=== PATIENT | female | born 1925 | race Caucasian/White ===

== ENCOUNTER 2016-12-04 06:20 | Day surgery (SDC) | payer MEDICARE, OTHER ==
[~2016-12-04] VITALS: Ht 160 cm; Wt 57.1 kg
[2016-12-04] VITALS (9 sets, daily range): BP systolic 141–175; BP diastolic 36–46; PULSE 53–70; RESP 15–22; O2SAT 91–98
[~2016-12-04 06:20] MED LIST: ALEN70TA51 PO; CHOL100045 PO; Dexamethasone 4 mg/mL Inj IV ONE; Dexamethasone Inj 20 MG in 0.9% Sodium Chloride-Pha MIX 50 ML IV ONE; FELO10TA3 PO; HYDR12.55 PO; LOSA50TA37 PO; Lactated Ringer's 1,000 ML IV ONE; METO50TA3 PO
[2016-12-04] MEDS ORDERED: Propofol 10,000 mCg/mL 20 mL Inj ONE (06:21)
[2016-12-04] MEDS ORDERED: EPHEDrine/NS 5 mg/mL 5 mL Syringe ONE (06:21)
[2016-12-04] MEDS ORDERED: Ondansetron 2 mg/mL 2 mL Inj ONE (06:21)
[2016-12-04] MEDS ORDERED: fentaNYL-PF 50 mCg/mL 2 mL Inj ONE (06:21)
[2016-12-04] MEDS ORDERED: Glycopyrrolate 0.2 MG/ML 1mL Inj ONE (06:21)
[2016-12-04] MEDS ORDERED: Neostigmine 1 mg/mL 10 mL Inj ONE (06:21)
--- NOTE | 2016-12-04 06:52 | PCM.HPANE ---
Patient Data Surgeon Admitting Provider: Attending Provider:Yunior Leal MD Primary Care Physician:Leon Soares MD Other Provider:[facility] Reason for Visit Primary Hyperparathyroidism Ht/WT & BMI Height (Feet): 5 Height (Inches): 3.25 Weight (Kilograms): 56.699 Body Mass Index 21.00 Allergies Coded Allergies: No Known Allergies (Verified , 12/01/16) Past Anesthesia History Anesthesia History: Denies:: Anesthesia Reactions, Malignant Hyperthermia Diabetes History Hx Diabetes?: No MRSA MRSA: No Medications Hypertension Medication: Yes (FELODIPINE) Home Meds Incl Beta Joel: Yes Date Beta Joel Taken: Dec 04, 2016 Time Beta Joel Taken: 529 Reported Medications Cholecalciferol (Vitamin D3) (Vitamin D)1,000 Unit Capsule2,000 Unit PO DAILY # 1 BOTTLE Ref 0 12/01/16 Metoprolol Tartrate 50 Mg [id number] Mg PO DAILY 30 Days Ref 0 12/01/16 Losartan Potassium 50 Mg [id number] Mg PO DAILY 12/01/16 Hydrochlorothiazide 12.5 Mg Fsmnnq26.5 Mg PO DAILY 30 Days Ref 0 12/01/16 Felodipine ER 10 Mg Tab.er.24h10 Mg PO DAILY Ref 0 12/01/16 Alendronate (Binosto)70 Mg Tablet.eff70 Mg PO WEEKLY 12/01/16 Discontinued Reported Medications Metoprolol Succinate ER 50 Mg Tab.er.24h50 Mg PO DAILY Ref 0 12/07/15 Felodipine-Expunged Drug, Do Not Renew! (Plendil-Expunged Drug, Do Not Renew!)5 Mg Tablet5 Mg PO DAILY 10/09/12 Losartan-Expunged Drug, Do Not Renew! 50 Mg Zibbxc28 Mg PO BID 06/23/11 [vitamin D] No Conflict Check take as perviously directed 06/23/11 History History of ENT Problems?: Yes HEENT History: Positive for:: Cataracts Sinus Problem ("I have alot of mucus") Denies:: Dysphagia Denture Type: None Teeth Condition: Within Normal Limits Other HEENT Pertinent History: S/P RPR LT MAXILLARY SINUS,T&A Hx of Heart Problems?: Yes Cardiovascular History: Positive for:: Chest Pain (09/2012 [facility]PS WNL) Hypertension Denies:: Cardiac Surgery Congestive Heart Failure Edema Heart Murmur Irregular Heartbeat Pacemaker Thrombophlebitis Other Cardiac History: HX CHRONIC ANEMIA Hx of Respiratory Problem?: No Respiratory History: Denies:: Tuberculosis Use of C-PAP Machine Hx Neurologic Problems?: No Hx of GI Problems?: Yes Other GI Pertinent History: S/P APPY,COLON RESECTION FOR CA Hx of Problems?: No Genitourinary History: Denies:: HX of Hemodialysis Kidney Stones Urinary Tract Infection HX of Peritoneal Dialysis: No Female Hx: Denies:: Currently (S/P C/S X2) Endometriosis Pelvic Inflammatory Problems with Breasts? Skin History: Denies:: History Skin Disorders? Pressure Ulcers Hx Musculoskeletal Problems?: No Musculoskeletal History: Positive for:: Back Injury (CHRONIC) Musculoskeletal Trauma (S/P ORIF FEET/LEGS,RT HUMERUS (FALL DOWN STAIRS)) Denies:: Joint Replacement Osteoarthritis (OSTEOPOROSIS) Hx of Psycho/Social Problems?: No Hx Surgeries?: Yes (ORIF FOOT/LEGS/RT HUMERUS,RPR LR MAX. SINUS,APPY,C/SX2,T&A, COLON RESECTION) Hx Any Other Health Problems?: Yes Other History: Positive for:: Cancer (Colon cancer) Denies:: Endocrine Disease Hospitalization (GASTROENTERITIS/SEPSIS) Thyroid Disease (PRIMARY HYPERPARATHYROIDISM=CURRENT PROBLEM) History Blood Transfusions: Positive for:: Accept Blood Products? Blood Transfusions Denies:: Blood Transfuse Reaction Hx Diabetes: No Hx Alcohol Use: NoHx Substance Use: NoHave You Smoked inLast 12 mo: No Stop/Bang S-Snoring: Do You Snore Loudly: No T-Tired: feel tired, fatigued: No O-Obsered: Observed not breath: No P-Blood Pressure: treated: Yes A- Age over 50: Yes N- Neck Large Circumference: No G- Gender Male: No Risk Assessment Category Category 1A: Patient has history of documented sleep apnea, and HAS NOT received any narcotic, sedative or anesthesia administration during this stay. Category 1B: Patient has history of documented sleep apnea, and HAS received any narcotic , sedative or anesthesia administration during this stay Category 2: Patient has SUSPECTED Obstructive Sleep Apnea, and HAS received any narcotic , sedative or anesthesia administration during this stay. Category 3: Patient has SUSPECTED Obstructive Sleep Apnea and HAS NOT received narcotic, sedative or anesthesia administration during this stay. Category 4: Outpatient in Procedural Areas with known sleep apnea or who screen positive for High Risk via the STOP/BANG questionnaire. Exam Exam General Appearance: Alert, Oriented X3, Cooperative, Mild Distress HEENT/AIRWAY: MP 2, Neck Movement (from), Mouth Opening (wnl) Heart: Exam Unremarkable Meds/Labs/Diagnostics Admission Meds Current Medications Lactated Ringer's (Lr) 1,000 ml @ 120 mls/hr Q8H20M ONCE IV Last administered on 12/04/16t 06:39; Start 12/04/16 at 05:00; Stop 12/04/16 at 13:19 Plan Impression Patient chart reviewed, patient interviewed and anesthestic plan with risks, benefits, and alternatives discussed, and informed consent obtained. ASA Physical Status: ASA2 Mod Systemic Disease Anesthetic Plan: GA Bene/Risks/Altern/Consents: Yes HP Complete Prior to Induction: Yes Cornelio Lucia MD Dec 04, 2016 06:52
[2016-12-04] MEDS ORDERED: Lactated Ringer's 1,000 ML IV SCH (08:19)
[2016-12-04] MEDS ORDERED: Lactated Ringer's 500 ML IV PRN (08:19)
[2016-12-04] MEDS ORDERED: HYDROmorphone 1 mg/mL Inj IVPUSH PRN (08:20)
[2016-12-04] MEDS ORDERED: Labetalol 5 mg/mL 4 mL Inj IV PRN (08:20)
[2016-12-04] MEDS ORDERED: Atropine 0.4 mg/mL Inj IVPUSH PRN (08:20)
[2016-12-04] MEDS ORDERED: EPHEDrine Sulfate 50 mg/mL Inj IVPUSH PRN (08:20)
[2016-12-04] MEDS ORDERED: Ondansetron 2 mg/mL 2 mL Inj IVPUSH PRN (08:20)
[2016-12-04] MEDS ORDERED: hydrALAZINE 20 mg/mL Inj IVPUSH PRN (08:20)
[2016-12-04] MEDS ORDERED: Phenylephrine 10,000 mCg/mL Inj IVPUSH PRN (08:20)
[2016-12-04] MEDS ORDERED: fentaNYL-PF 50 mCg/mL 2 mL Inj IVPUSH PRN (08:20)
[2016-12-04] MEDS ORDERED: Lidocaine 1%-Epi 1:100,000 20 mL Inj INFILTRATE ONE (08:52)
--- NOTE | 2016-12-04 10:04 | PCM.ANEP1 ---
Post Anesthesia PACU Phase 1 Assessment Vital Signs Vital Signs Date Time Temp Pulse Resp B/P Pulse Ox O2 Delivery O2 Flow Rate FiO2 12/04/16 09:50 66 22 146/42 97 Nasal Cannula 2 12/04/16 09:45 68 18 152/46 92 Room Air 12/04/16 09:40 36.9 70 16 162/44 91 Room Air 12/04/16 06:56 36.0 53 15 175/42 97 Room Air Anesthetic Administered: GA Level of Alertness: Awake, talking PANDEY's with Equal Strength: Yes Pain: No Nausea or Vomiting: No CV Function & Hydration Stable: Yes Airway Device: Oxygen Delivery: Room Air Lungs: Normal Air Movement PACU Phase 2 Assessment Complications: No Follow up Care: No Patient Instructions Provided: N/A Cornelio Lucia MD Dec 04, 2016 10:04
--- NOTE | 2016-12-04 11:49 | OP ---
[address] [address] OPERATIVE REPORT PATIENT: MERLY CAICEDO : 1925 MR#: [id number] ADMIT: 12/04/2016 JOB ID: [id number] DATE OF SURGERY: 12/04/2016 PREOPERATIVE DIAGNOSIS(ES): Primary hyperparathyroidism. POSTOPERATIVE DIAGNOSIS(ES): Primary hyperparathyroidism. PROCEDURE: 1. Parathyroid exploration. 2. Removal of left inferior parathyroid adenoma. SURGEON: Yunior Leal MD SPECIALIST PHYSICIANS: Armando Sampson MD INDICATIONS: An 89-year-old, with persistently elevated calcium and serum parathyroid hormone levels. The scan and ultrasound indicated a left inferior pole adenoma. PROCEDURE AND FINDINGS: The patient was taken to the operative room, placed in supine position on the operating table. General endotracheal anesthesia induced. The neck is extended. Anterior neck was prepped and draped in a sterile fashion. The planned low lying neck incision is injected with 2% lidocaine 1:100,00 epinephrine. With a 15 blade, the incision was made through the skin, subcutaneous tissue and platysma. Subplatysmal flap was elevated cephalad and caudad. Self-retaining retractor was placed. The strap muscles were in the midline, identifying the thyroid isthmus. The left thyroid lobe was exposed. Dissection begins at the inferior pole. The inferior pole was reflected cephalad, exposing a 1 cm mass consistent with a parathyroid. The mass was removed, submitted for frozen section examination, which confirmed parathyroid tissue. After 15 minutes, an intraoperative parathyroid hormone level was drawn. Hemostasis was obtained. The strap muscles were reapproximated in the midline with interrupted 4-0 chromic, the platysma and subcutaneous tissues with interrupted buried 4-0 chromic, the subcuticular layer with interrupted buried 4-0 chromic, and the skin with Dermabond. A light pressure dressing is applied. The patient is awakened, extubated in the operative room, returned to the recovery room in good condition. ESTIMATED BLOOD LOSS: Less than 5 cc. DRAINS: None. COMPLICATIONS: None. PATHOLOGY SPECIMENS: The parathyroid was submitted.
== END 2016-12-04 23:59 | disposition home or self-care (01) ==
LOC: SAS 06:20
PROVIDERS: ATTEND Otolaryngology Facial Plastic Surgery
DX: E21.0 Primary hyperparathyroidism (principal); D35.1 Benign neoplasm of parathyroid gland; I10 Essential (primary) hypertension
CPT/HCPCS: 36415; 60500; 83970; J1100; J2405; J2710; J3010; J7120